=== PATIENT | male | born 1965 | race African-American/Black ===

== ENCOUNTER 2018-02-05 08:47 | Emergency (ER) | payer SELFPAY ==
[~2018-02-05] VITALS: Ht 182.9 cm; Wt 100.0 kg
[~2018-02-05 08:47] MED LIST: BACT800T5 PO; NORC5TAB PO
[2018-02-05 08:48] VITALS: BP 133/60; PULSE 81; RESP 16; TEMP 98.5; O2SAT 97
[2018-02-05] MEDS ORDERED: SODIUM CHLOR 0.9% 1000 ML INJ 1,000 ML IV SCH (09:29)
[2018-02-05] MEDS ORDERED: MORPHINE SULFATE 4 MG/ML INJ IV PUSH ONE (09:30)
[2018-02-05] MEDS ORDERED: SODIUM CHLORIDE 0.9% FLUSH 10 ML FLUSH IVF PRN (09:30)
--- NOTE | 2018-02-05 10:03 | PD ---
HPI Chief Complaint: Back/ Neck Pain or Injury Time Seen by Provider: 09:27 Travel History International Travel<30 days: No Contact w/Intl Traveler<30days: No Traveled to known affect area: No History of Present Illness HPI 52-year-old -[place] male presents emergency department with 2 week history of lower back pain/flank pain, radiating into the testicles bilaterally , and dark appearing urine for almost a month. Patient denies any specific injury. He denies fever, chills, or nausea or vomiting. He denies changes in sexual activity. He denies dysuria or penile discharge. Patient states the pain is worse with movement. Pain is currently 9 out of 10. Pain does not radiate into the lower extremities. He has no known drug allergies. PFSH Past Medical History Asthma: No Autoimmune Disease: No Blood Disorders: No Anxiety: No Depression: No Heart Rhythm Problems: No Cancer: No High Cholesterol: Yes Chemotherapy: No Chest Pain: Yes Congestive Heart Failure: No COPD: No Cerebrovascular Accident: Yes Diabetes: No Diminished Hearing: No Endocrine: No GERD: Yes Glaucoma: No Genitourinary: No Headaches: Yes Hepatitis: No Hiatal Hernia: No Hypertension: Yes (OFF AND ON NON MEDICATED) Immune Disorder: No Implanted Vascular Access Dvce: Yes Kidney Stones: No Musculoskeletal: No Neurologic: No Psychiatric: No Reproductive: No Respiratory: No Immunizations Current: No Migraines: No Myocardial Infarction: No Radiation Therapy: No Renal Failure: No Seizures: No Sickle Cell Disease: No Sleep Apnea: No Thyroid Disease: No Ulcer: No Past Surgical History Abdominal Surgery: No AICD: No Appendectomy: No Arteriovenous Shunt: No Cardiac Surgery: No Cholecystectomy: No Insulin Pump: No Joint Replacement: No Pacemaker: No Thoracic Surgery: No Other Surgery: Yes Social History Alcohol Use: Yes (8 BEERS DAILY) Tobacco Use: Yes ( HALF PACK PER DAY FOR 20 YEARS) Substance Use: Yes (COCAINE) Allergies-Medications (Allergen,Severity, Reaction): Coded Allergies: No Known Allergies (Verified , 07/26/16) Reported Meds & Prescriptions Reported Meds & Active Scripts Active [facility] (Hydrocodone-Acetaminophen) 5 Mg-325 Mg Tab 1 Tab PO Q6H PRN Flexeril (Cyclobenzaprine HCl) 10 Mg Tab 10 Mg PO TID Ibuprofen 800 Mg Tab 800 Mg PO Q8H PRN Review of Systems Except as stated in HPI: all other systems reviewed are Neg General / Constitutional: No: Fever Eyes: No: Visual changes HENT: No: Headaches Cardiovascular: No: Chest Pain or Discomfort Respiratory: No: Shortness of Breath Gastrointestinal: No: Abdominal Pain Genitourinary: No: Dysuria Musculoskeletal: No: Pain Skin: No Rash Neurologic: No: Weakness Psychiatric: No: Depression Endocrine: No: Polydipsia Hematologic/Lymphatic: No: Easy Bruising Physical Exam Narrative GENERAL: Patient appears in mild to moderate distress. SKIN: Warm and dry. Normal color. Normal turgor. HEAD: Atraumatic. Normocephalic. EYES: Pupils equal and round. No scleral icterus. No injection or drainage. ENT: No nasal bleeding or discharge. Mucous membranes pink and moist. Pharynx is clear. Airways patent NECK: Trachea midline. No JVD. CARDIOVASCULAR: Regular rate and rhythm. RESPIRATORY: No accessory muscle use. Clear to auscultation. Breath sounds equal bilaterally. GASTROINTESTINAL: Abdomen soft, non-tender, nondistended. Hepatic and splenic margins not palpable. Mild bilateral CVA tenderness. Testicles are normal in appearance. MUSCULOSKELETAL: Extremities without clubbing, cyanosis, or edema. No obvious deformities. Patient has generalized soft tissue lumbar tenderness bilaterally. Negative straight leg raise pain bilaterally NEUROLOGICAL: Awake and alert. No obvious cranial nerve deficits. Motor grossly within normal limits. Five out of 5 muscle strength in the arms and legs. Normal speech. PSYCHIATRIC: Appropriate mood and affect; insight and judgment normal. Data Data Last Documented VS Vital Signs Date Time Temp Pulse Resp B/P (MAP) Pulse Ox O2 Delivery O2 Flow Rate FiO2 02/05/18 10:21 16 02/05/18 08:48 98.5 81 133/60 (84) 97 Orders Orders Complete Blood Count With Diff (02/05/18 09:29) Comprehensive Metabolic Panel (02/05/18 09:29) Urinalysis - C+S If Indicated (02/05/18 09:29) Gc And Chlamydia Pcr (02/05/18 09:29) Ct Abd/Pel W/O Iv Contrast (02/05/18 09:29) Iv Access Insert/Monitor (02/05/18 09:29) Sodium Chloride 0.9% Flush (Ns Flush) (02/05/18 09:30) Morphine Inj (Morphine Inj) (02/05/18 09:30) Sodium Chlor 0.9% 1000 Ml Inj (Ns 1000 M (02/05/18 09:29) Labs Laboratory Tests Test 02/05/18 09:00 02/05/18 11:10 White Blood Count 5.5 TH/MM3 Red Blood Count 4.78 MIL/MM3 Hemoglobin 14.3 GM/DL Hematocrit 42.5 % Mean Corpuscular Volume 89.0 FL Mean Corpuscular Hemoglobin 29.9 PG Mean Corpuscular Hemoglobin Concent 33.6 % Red Cell Distribution Width 14.6 % Platelet Count 239 TH/MM3 Mean Platelet Volume 8.0 FL Neutrophils (%) (Auto) 41.9 % Lymphocytes (%) (Auto) 43.1 % Monocytes (%) (Auto) 11.3 % Eosinophils (%) (Auto) 2.6 % Basophils (%) (Auto) 1.1 % Neutrophils # (Auto) 2.3 TH/MM3 Lymphocytes # (Auto) 2.4 TH/MM3 Monocytes # (Auto) 0.6 TH/MM3 Eosinophils # (Auto) 0.1 TH/MM3 Basophils # (Auto) 0.1 TH/MM3 CBC Comment DIFF FINAL Differential Comment Blood Urea Nitrogen 14 MG/DL Creatinine 1.26 MG/DL Random Glucose 77 MG/DL Total Protein 6.8 GM/DL Albumin 3.4 GM/DL Calcium Level 8.5 MG/DL Alkaline Phosphatase 72 U/L Aspartate Amino Transf (AST/SGOT) 20 U/L Alanine Aminotransferase (ALT/SGPT) 27 U/L Total Bilirubin 0.3 MG/DL Sodium Level 144 MEQ/L Potassium Level 4.1 MEQ/L Chloride Level 114 MEQ/L Carbon Dioxide Level 18.6 MEQ/L Anion Gap 11 MEQ/L Estimat Glomerular Filtration Rate 73 ML/MIN Urine Color YELLOW Urine Turbidity CLEAR Urine pH 5.0 Urine Specific [place] 1.025 Urine Protein NEG mg/dL Urine Glucose (UA) NEG mg/dL Urine Ketones NEG mg/dL Urine Occult Blood NEG Urine Nitrite NEG Urine Bilirubin NEG Urine Urobilinogen LESS THAN 2 mg/dL Urine Leukocyte Esterase NEG Urine WBC 1 /hpf Urine Mucus FEW /lpf Microscopic Urinalysis Comment CULT NOT INDICATED MDM Medical Decision Making Medical Screen Exam Complete: Yes Emergency Medical Condition: Yes Differential Diagnosis Low back pain. Urinary tract infection. Hernia. GC chlamydia. Renal colic. Narrative Course Patient is medically stable at time of exam. Labs ordered including CBC, CMP, and urinalysis Urine GC chlamydia is sent to the lab IV access is obtained the patient is given 2 mg IV morphine, and 1000 mL of normal saline bolus. CT of the abdomen and pelvis without contrast is ordered CT shows: 1. No definitive acute CT abnormality to expand patient's symptoms. 2. 3.8 cm cyst in the inferior pole of the left kidney. 3. Normal appendix. 4. Small bilateral fat-containing inguinal hernias and anterior abdominal wall periumbilical hernia. CBC is unremarkable. CMP unremarkable. Urinalysis unremarkable. Patient discussed with Dr. Banks. Patient treated with ibuprofen 800 mg 3 times daily #60 Flexeril 10 mg 3 times daily #15 Patient is given Lortab 5/325 1 every 6 hours as needed #12 Patient to follow-up with local primary care physician or return to emergency department if symptoms worsen. Work note is given. Diagnosis Primary Impression: Lumbago without sciatica Qualified Codes: M54.5 - Low back pain Patient Instructions: Acute Low Back Pain (ED), General Instructions Departure Forms: Work Release Enter return to work date: Feb 08, 2018 Additional Instructions: CT shows: 1. No definitive acute CT abnormality to expand patient's symptoms. 2. 3.8 cm cyst in the inferior pole of the left kidney. 3. Normal appendix. 4. Small bilateral fat-containing inguinal hernias and anterior abdominal wall periumbilical hernia. CBC is unremarkable. CMP unremarkable. Urinalysis unremarkable. Patient discussed with Dr. Banks. Patient treated with ibuprofen 800 mg 3 times daily #60 Flexeril 10 mg 3 times daily #15 Patient is given Lortab 5/325 1 every 6 hours as needed #12 Patient to follow-up with local primary care physician or return to emergency department if symptoms worsen. Work note is given. GC and Chlamydia testing is still pending, however I do not suspect infection. He will be called if these are positive for treatment. Med/Other Pt SpecificInfo: Prescription(s) given Scripts Hydrocodone-Acetaminophen ([facility]) 5 Mg-325 Mg Tab 1 TAB PO Q6H Y for PAIN, #12 TAB 0 Refills Prov: Fernandez Banks MD 02/05/18 Cyclobenzaprine (Flexeril) 10 Mg Tab 10 MG PO TID for Muscle Spasm, #15 TAB 0 Refills Prov: Fernandez Banks MD 02/05/18 Ibuprofen (Ibuprofen) 800 Mg Tab 800 MG PO Q8H Y for Pain/Inflammation, #60 TAB 0 Refills Prov: Fernandez Banks MD 02/05/18 Disposition: 01 DISCHARGE HOME Condition: Stable Maximiliano Merrill Feb 05, 2018 10:03
[2018-02-05 10:18] LABS: AUTOMATED NEUTROPHIL # 2.3 TH/MM3 (1.8-7.7); BASOPHIL # 0.1 TH/MM3 (0-0.2); BASOPHIL % 1.1 % (0.0-2.0); EOSINOPHIL # 0.1 TH/MM3 (0-0.4); EOSINOPHIL % 2.6 % (0.0-4.0); HEMATOCRIT 42.5 % (39.0-51.0); HEMOGLOBIN 14.3 GM/DL (13.0-17.0); LYMPH % 43.1 % (9.0-44.0); LYMPHOCYTE # 2.4 TH/MM3 (1.0-4.8); MEAN CORPUSCULAR HEMOGLOBIN 29.9 PG (27.0-34.0); MEAN CORPUSCULAR HGB CONC 33.6 % (32.0-36.0); MONO % 11.3 % (0.0-8.0); MONOCYTE # 0.6 TH/MM3 (0-0.9); NEUT % 41.9 % (16.0-70.0); PLATELET COUNT 239 TH/MM3 (150-450); RED BLOOD COUNT 4.78 MIL/MM3 (4.50-5.90); RED CELL DISTRIBUTION WIDTH 14.6 % (11.6-17.2); WHITE BLOOD COUNT 5.5 TH/MM3 (4.0-11.0)
[2018-02-05 10:21] VITALS: RESP 16
[2018-02-05 10:41] LABS: ALBUMIN 3.4 GM/DL (3.4-5.0); ALKALINE PHOSPHATASE 72 U/L (45-117); ALT (GPT) 27 U/L (12-78); AST (GOT) 20 U/L (15-37); BICARBONATE 18.6 MEQ/L (21.0-32.0); BLOOD UREA NITROGEN 14 MG/DL (7-18); CALCIUM 8.5 MG/DL (8.5-10.1); CHLORIDE 114 MEQ/L (98-107); CREATININE 1.26 MG/DL (0.60-1.30); GLOMERULAR FILTRATION RATE 73 ML/MIN (>89); GLUCOSE,RANDOM 77 MG/DL (74-106); SODIUM (NA) 144 MEQ/L (136-145); TOTAL PROTEIN 6.8 GM/DL (6.4-8.2)
[2018-02-05 10:49] LABS: TOTAL BILIRUBIN ADULT 0.3 MG/DL (0.2-1.0)
--- NOTE | 2018-02-05 11:03 | RADRPT ---
EXAM DATE: 02/05/2018 10:25 AM EDT AGE/SEX: 52 years / Male INDICATIONS: Lower back pain, bilateral flank pain for two weeks; evaluate for renal calculi. CLINICAL DATA: This is the patient's initial encounter. Patient reports that signs and symptoms have been present for 2 weeks and indicates a pain score of 5/10. MEDICAL/SURGICAL HISTORY: Gastroesophageal reflux disease. Hypertension. Stroke. None. RADIATION DOSE: 8.16 CTDI (mGy) COMPARISON: No prior exams available for comparison. TECHNIQUE: Multiple contiguous axial images were obtained through the abdomen. Images were obtained using multiple row detector helical technique. Using automated exposure control and adjustment of the mA and/or kV according to patient size, radiation dose was kept as low as reasonably achievable to o btain optimal diagnostic quality images. DICOM format image data is available electronically for rev iew and comparison. FINDINGS: LOWER LUNGS: The visualized lower lungs are clear. LIVER: The liver has a homogeneous density without space-occupying lesion. There is no dilation of t he biliary tree. SPLEEN: Homogeneous density without enlargement. PANCREAS: Unremarkable without mass or calcification. KIDNEYS: 3.8 cm cyst in the inferior pole of the left kidney. No radiopaque renal calculi or hydrone phrosis. Kidneys otherwise symmetrical in size. ADRENAL GLANDS: Unremarkable. AORTA: Brigida-aneurysmal. BOWEL/MESENTERY: The bowel loops are grossly unremarkable. The cecum and sigmoid colon have a donavan l configuration. Appendix is visualized and normal in appearance ABDOMINAL WALL: Small periumbilical fat-containing anterior abdominal wall hernia. RETROPERITONEUM: No evidence of adenopathy in the retrocrural, para-aortic, or deep pelvic regions. BLADDER: Contours are smooth. REPRODUCTIVE: No abnormal masses or calcifications seen. Small fat-containing bilateral inguinal her nias. BONY STRUCTURES: Unremarkable. CONCLUSION: 1. No definitive acute CT abnormality to expand patient's symptoms. 2. 3.8 cm cyst in the inferior pole of the left kidney. 3. Normal appendix. 4. Small bilateral fat-containing inguinal hernias and anterior abdominal wall periumbilical hernia. Electronically signed by: Francisco Graham MD 02/05/2018 11:01 AM EDT
[2018-02-05 12:01] LABS: BILIRUBIN, URINE NEG (NEG); BLOOD, URINE NEG (NEG); GLUCOSE,URINE NEG (NEG); KETONE, URINE NEG (NEG); MUCUS URINE FEW /lpf (OCC); NITRITE,URINE NEG (NEG); URINE COLOR YELLOW (YELLW/STRAW); URINE LEUKOCYTE ESTERASE NEG (NEG)
[2018-02-05] MEDS ORDERED: CYCL10TA PO (12:21)
[2018-02-05] MEDS ORDERED: NORC5TAB PO (12:21)
[2018-02-05] MEDS ORDERED: IBUP1TAB7 PO (12:21)
[2018-02-05] MEDS ORDERED: KETOROLAC TROMETHAMINE 30 MG/ML (IVP) VIAL IV PUSH ONE (12:45)
== END 2018-02-05 13:06 | disposition home or self-care (01) ==
LOC: NEPD 08:47
DX: M54.5 Low back pain (principal); K40.20 Bilateral inguinal hernia, without obstruction or gangrene, not specified as recurrent; K42.9 Umbilical hernia without obstruction or gangrene; F17.200 Nicotine dependence, unspecified, uncomplicated
CPT/HCPCS: 74176; 80053; 81001; 85025; 96361; 96374; 96375; 99284; J1885; J2270; J7030